=== PATIENT | male | born 1950 | race Caucasian/White ===

== ENCOUNTER 2023-07-09 08:43 | Emergency (ER) | payer OTHER, BC ==
[2023-07-09 09:03] VITALS: BP 160/100; PULSE 75; RESP 16; TEMP 97.9; BMI 24.3
[2023-07-09] MEDS ORDERED: DIPHTH,PERTUSS(ACELL),TET 0.5 ML DISP.SYRIN IM ONE (09:54)
[2023-07-09] MEDS: DIPHTH,PERTUSS(ACELL),TET 0.5 ML DISP.SYRIN IM ONE (10:02)
== END 2023-07-09 10:19 | disposition home or self-care (01) ==
LOC: FER 08:43
PROC: 0HQFXZZ Repair Right Hand Skin, External Approach (ICD-10-PCS; principal; 2023-07-09)
PROC: 3E0234Z Introduction of Serum, Toxoid and Vaccine into Muscle, Percutaneous Approach (ICD-10-PCS; 2023-07-09)
DX: S61.412A Laceration without foreign body of left hand, initial encounter (principal); W25.XXXD Contact with sharp glass, subsequent encounter; Y93.89 Activity, other specified
CPT/HCPCS: 12002-25; 90471; 90715; 99282-25